=== PATIENT | male | born 1995 | race Caucasian/White ===

== ENCOUNTER → 2017-06-03 11:58 | Emergency (ER) | payer SELFPAY ==
[~2017-06-03 11:58] MED LIST: Albuterol/Ipratropium NEB.SOL* Albuterol 2.5 MG/Ipratropium 0.5 MG 3 ML INH ONE; Dexamethasone IV* 4 MG/ML 1 ML (4 MG) IV SLOW PU ONE; EPINEPHrine,Rac 2.25% NEB.SOL* 0.5 ML INH ONE; NS 0.9% 1000 ML* 1,000 ML IV ONE
[2017-06-03 13:10] LABS: PCO2 Arterial 33 mmHg (35-45)
[2017-06-03 13:27] LABS: Hematocrit 44 % (42-52); Mean Corpuscular HGB Conc 34 g/dl (31-36); Mean Corpuscular Hemoglobin 30 pg (27-31); Mean Corpuscular Volume 86 fL (80-94); Mean Platelet Volume 9 um3 (7.4-10.4); Red Blood Count 5.05 10^6/ul (4.0-5.4); Red Cell Distribution Width 14 % (10.5-15); White Blood Count 12.8 10^3/ul (3.5-10.8)
--- NOTE | 2017-06-03 13:43 | RAD ---
INDICATION: Shortness of breath. COMPARISON: There are no prior studies available for comparison. TECHNIQUE: AP and lateral views of the chest were obtained. FINDINGS: The heart is within normal limits in size. Mediastinal and hilar contours appear within normal limits. The lungs are clear. No pleural effusion is present. IMPRESSION: NO EVIDENCE FOR ACTIVE CARDIOPULMONARY DISEASE.
[2017-06-03 13:51] LABS: Troponin I 0.01 ng/mL (<0.04)
[2017-06-03 14:06] VITALS: BP 136/62
[2017-06-03 14:11] LABS: Albumin 4.2 g/dL (3.2-5.2); BUN/Creatinine Ratio 10.2 (8-20); C Reactive Protein 27.48 mg/L (< 5.00); Calcium 9.2 mg/dL (8.6-10.3); EGFR African American 126.7 (>60); EGFR Non-African American 98.5 (>60); Globulin 2.7 g/dL (2-4); Potassium 3.7 mmol/L (3.5-5.0); Total Bilirubin 0.4 mg/dL (0.2-1.0); Total Protein 6.9 g/dL (6.4-8.9)
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
== END | disposition short-term general hospital (02) ==
LOC: ED 11:58
DX: T59.91XA Toxic effect of unspecified gases, fumes and vapors, accidental (unintentional), initial encounter (principal); Y92.9 Unspecified place or not applicable; Z87.891 Personal history of nicotine dependence; T27.3XXA Burn of respiratory tract, part unspecified, initial encounter
CPT/HCPCS: 36415; 36600; 71020; 80053; 82550; 82803; 83605; 83880; 84484; 85025; 86140; 87040; 87651; 93005; 94640; 96360; 96374; 99284; A9270-GY; J1100

== ENCOUNTER 2018-03-25 16:11 | Emergency (ER) | payer SELFPAY ==
[2018-03-25 17:13] VITALS: BP 0/0
== END 2018-03-25 17:01 | disposition left against medical advice (07) ==
LOC: ED 16:11
DX: R51 Headache (principal); Z53.21 Procedure and treatment not carried out due to patient leaving prior to being seen by health care provider